=== PATIENT | male | born 1950 | race Caucasian/White ===

== ENCOUNTER 2017-10-15 10:53 | Emergency (ER) | payer MEDICARE ==
[~2017-10-15] VITALS: Ht 175.3 cm; Wt 98.0 kg
[2017-10-15] MEDS: IBUPROFEN 600 MG TABLET. PO ONE (11:36)
[2017-10-15] MEDS: DIPHTH,PERTUSS(ACELL),TET TOX 0.5 ML DISP.SYRIN. VAX IM ONE (11:37)
--- NOTE | 2017-10-15 11:37 | ED.ADGEN ---
Past History Past Medical History: Diabetes Past Surgical History: No Surgical History Alcohol Use: Occasionally Drug Use: None Adult General Chief Complaint Chief Complaint Foot pain, pinky pain HPI HPI Patient is a 67 year old male who presents with R foot pain after falling off a ladder yesterday evening at 5pm. Pt was on a ladder leaned against a tree when a branch caused the leaning ladder to be knocked over and pt slid down the ladder and landed on his feet and then to ground. Witnessed by but not remembered by pt. He denies hitting head, denies headache, neck or back pain. Pt also scraped the anterior surface of his left lower leg and injury to his left pinky finger. Pt has been using his wifes old cruches for ambulation. Review of Systems Review of Systems Constitutional: Denies fever or chills [] Eyes: Denies change in visual acuity, redness, or eye pain [] HENT: Denies nasal congestion or sore throat [] Respiratory: Denies cough or shortness of breath [] Cardiovascular: denies chest pain GI: Denies abdominal pain, nausea, vomiting, bloody stools or diarrhea [] : Denies dysuria or hematuria [] Musculoskeletal: Denies back pain Integument: Denies rash or skin lesions [] Neurologic: Denies headache, focal weakness or sensory changes [] Current Medications Current Medications Current Medications Medications (Trade) Dose Ordered Sig/Pranav Start Time Stop Time Status Last Admin Dose Admin Diphtheria/ Tetanus/Acell Pertussis (Boostrix) 0.5 ml ONCE ONCE 10/15/17 11:30 10/15/17 11:32 DC 10/15/17 11:37 0.5 ML Ibuprofen (Motrin) 600 mg 1X ONCE 10/15/17 11:30 10/15/17 11:32 DC 10/15/17 11:36 600 MG Allergies Allergies Allergies Coded Allergies Type Severity Reaction Last Updated Verified No Known Drug Allergies 10/15/17 No Physical Exam Physical Exam Constitutional: Well developed, well nourished, no acute distress, non-toxic appearance. [] HENT: Normocephalic, atraumatic, bilateral external ears normal, oropharynx moist, no oral exudates, nose normal. [] Eyes: PERRLA, EOMI, conjunctiva normal, no discharge. [] Neck: Normal range of motion, no tenderness, supple, no stridor. no midline ttp , no stepoffs Cardiovascular:Heart rate regular with regular rhythm, no murmur [] Lungs & Thorax: Bilateral breath sounds clear to auscultation , no wheeze or crackles Abdomen: Bowel sounds normal, soft, no tenderness, no masses, no pulsatile masses. [] Skin: Warm, dry, no erythema, no rash. [] Back: No tenderness, no stepoffs, pelvis is stable, no pain in hips, no signs of trauma , no CVA tenderness. [] Extremities: LLE: L anterior leg abrasions without bony ttp, no erythema, FROM of all joints. RLE with ttp over the heal and ankle joint just distal to lateral malleolus, no obvious deformity, pulse intact, able to plantar and dorsiflex, wiggles toes, no ttp at base of 5th metatarsal. LUE no deformity, FROM, + edema of 5th finger with mild ttp, RUE no deformity, FROM Neurologic: Alert and oriented X 3, normal motor function, normal sensory function, no focal deficits noted. [] Psychologic: Affect normal, judgement normal, mood normal. [] Current Patient Data Vital Signs Vital Signs Date Time Temp Pulse Resp B/P (MAP) Pulse Ox O2 Delivery O2 Flow Rate FiO2 10/15/17 12:24 88 18 120/68 (85) 97 Room Air 10/15/17 11:11 98.1 EKG EKG [] Radiology/Procedures Radiology/Procedures XR foot initially read by radiology as no acute fracture, I believe pt likely has a calcaneal fracture but added on ankle XRay. Now read by different radiologist as calcaneal fracture. I discussed with Dr. Barreto who agrees with f/u CT for clinic f/u. Course & Med Decision Making Course & Med Decision Making Pertinent Labs and Imaging studies reviewed. (See chart for details) Pt given ibuprofen for pain, well controlled. Pt with calcaneal fracture. U splint placed with significant amount of padding by tech, reviewed by me to have good distal neurovascular status. Home care instructions given, recommended no smoking, RX for ibuprofen and few norco given. Return precautions. pt to f/o with Dr. Barreto in 1 week. Final Impression Final Impression Acute left calcaneal fracture.[] Problems: Dragon Disclaimer Dragon Disclaimer This electronic medical record was generated, in whole or in part, using a voice recognition dictation system. RITESH PUGH MD Oct 15, 2017 11:37
--- NOTE | 2017-10-15 11:44 | RAD ---
Right foot radiograph 10/15/2017 INDICATION: Fall from ladder. Pain and swelling on top of right foot. COMPARISON: None available. TECHNIQUE: 3 views the right foot are provided. FINDINGS: There is no acute fracture or dislocation. Thin linear lucency involving the lateral sesamoid of the first metatarsal may be a nutrient foramen. Bone mineralization is within normal limits. Joint spaces are maintained. Regional soft tissues are within normal limits. There is no soft tissue gas or osseous erosion. Vascular calcifications are present. IMPRESSION: No acute fracture or dislocation. Thin linear lucency involving the lateral sesamoid of the first metatarsal may be a nutrient foramen. Electronically signed by: Valentine Greene MD (10/15/2017 11:41 AM) [id number]
--- NOTE | 2017-10-15 11:45 | RAD ---
Left hand radiograph 10/15/2017 INDICATION: Fall from ladder with bruising of the fifth digit. COMPARISON: None available. TECHNIQUE: 3 views of the left hand are provided. FINDINGS: There is no acute fracture or dislocation. Remote fracture of the ulnar styloid process is noted. Bone mineralization is within normal limits. Joint spaces are maintained. Regional soft tissues are within normal limits. There is no soft tissue gas or osseous erosion. IMPRESSION: No acute fracture or dislocation. Electronically signed by: Valentine Greene MD (10/15/2017 11:42 AM) [id number]
--- NOTE | 2017-10-15 12:10 | RAD ---
EXAM: Right ankle, 3 views. HISTORY: Pain. COMPARISON: None. FINDINGS: Frontal, lateral and mortise views of the right ankle are obtained. There is a mildly displaced fracture of the calcaneus. There may be fracture line extension to the subtalar joint. No additional fracture is seen. The ankle is intact. There are vascular calcifications. IMPRESSION: Mildly displaced calcaneal fracture. Electronically signed by: Melissa Gamez MD (10/15/2017 12:07 PM) [id number]
[2017-10-15 12:24] VITALS: BP 120/68
[2017-10-15] MEDS ORDERED: IBUP600T16 PO (12:57)
[2017-10-15] MEDS ORDERED: HYDR-971 PO (12:57)
--- NOTE | 2017-10-15 13:17 | RAD ---
EXAM: Right foot CT without contrast. HISTORY: Fracture. TECHNIQUE: Computed tomographic images of the right foot were obtained without contrast. *One or more of the following individualized dose reduction techniques were utilized for this examination: 1. Automated exposure control. 2. Adjustment of the mA and/or kV according to patient size. 3. Use of iterative reconstruction technique. COMPARISON: Radiographs obtained on the same date. FINDINGS: There is a comminuted mildly displaced calcaneal fracture with fracture line extension to the subtalar joint. No additional fracture is seen. There is slight enthesopathy at the Achilles tendon insertion. There is a bone island within the talar dome. There is ankle soft tissue swelling. There are vascular calcifications. IMPRESSION: Comminuted mildly displaced calcaneal fracture. Electronically signed by: Melissa Gamez MD (10/15/2017 1:14 PM) [facility]
== END 2017-10-15 13:09 | disposition home or self-care (01) ==
LOC: ER 10:53
DX: S92.001A Unspecified fracture of right calcaneus, initial encounter for closed fracture (principal); S69.92XA Unspecified injury of left wrist, hand and finger(s), initial encounter; S80.812A Abrasion, left lower leg, initial encounter; E11.9 Type 2 diabetes mellitus without complications; W11.XXXA Fall on and from ladder, initial encounter; Y93.89 Activity, other specified; Y99.8 Other external cause status; Y92.89 Other specified places as the place of occurrence of the external cause
CPT/HCPCS: 29515; 73130; 73610; 73630; 73700; 90471; 90715; 99284-25